=== PATIENT | male | born 1930 | race Caucasian/White ===

== ENCOUNTER 2017-07-22 11:10 | Emergency (ER) | payer MEDICARE ==
[~2017-07-22] VITALS: Ht 180.3 cm; Wt 75.0 kg
[~2017-07-22 11:10] MED LIST: CALCIUM CITRATE PO; FLUARIX QUADRIV1 IN1 IM; MULTI COMPLETE; NO; OMEGA-3 FIS1 PO; PREVPAC OR; PROTONIX40 M2 PO; VITAMIN C500 MG PO; VITAMIN D32000 UNIT PO
[2017-07-22] MEDS ORDERED: PYRIDOSTIGM60 MG PO (11:27)
[2017-07-22 17:12] VITALS: BP 152/76
== END 2017-07-22 17:12 | disposition home or self-care (01) ==
LOC: ED 11:10
PROC: 0HQFXZZ Repair Right Hand Skin, External Approach (ICD-10-PCS; principal; 2017-07-22)
PROC: 0HQLXZZ Repair Left Lower Leg Skin, External Approach (ICD-10-PCS; 2017-07-22)
DX: S00.83XA Contusion of other part of head, initial encounter (principal); S61.411A Laceration without foreign body of right hand, initial encounter; S80.212A Abrasion, left knee, initial encounter; G70.00 Myasthenia gravis without (acute) exacerbation; W01.0XXA Fall on same level from slipping, tripping and stumbling without subsequent striking against object, initial encounter; Y92.009 Unspecified place in unspecified non-institutional (private) residence as the place of occurrence of the external cause